=== PATIENT | female | born 2005 | race Caucasian/White ===

== ENCOUNTER 2025-04-03 11:23 | Emergency (ER) | payer OTHER, SELFPAY ==
[2025-04-03 11:43] VITALS: BP 105/67; PULSE 72; RESP 18; TEMP 36.3; O2SAT 100
--- NOTE | 2025-04-03 11:54 | ED_ITS ---
HPI - Ear Problem General Chief complaint: Ear Stated complaint: R ear pain Time Seen by Provider: 04/03/25 11:54 Source: patient, RN notes reviewed and old records reviewed Mode of arrival: ambulatory Limitations: no limitations History of Present Illness HPI Narrative: 19 year old female who is student from [employer] presents to express care with complaints of right ear pain for the past 3 days. Patient is here to play volleyball game with [employer]. Patient reports pain to her right ear as 8/10 and has been taking Tylenol and Ibuprofen for her discomfort. Patient reports that hearing is muffled in herright ear and did have some yellowish discharge yesterday from her ear. MD Complaint: ear pain Location: right ear Duration: constant Severity: severe Discharge from ear: Reports yes - purulent (yellowish) Treatment prior to arrival: oral analgesic (Ibuprofen and Tylenol) Related Data Home Medications ?Medication ?Instructions ?Recorded ?Confirmed ?Last Taken ?Type norgestimate 0.25 mg-ethinyl tablet 04/03/25 Unknown History estradiol 0.035 mg tablet (Cole-Linyah) Allergies Allergy/AdvReac Type Severity Reaction Status Date / Time No Known Allergies Allergy Verified 04/03/25 11:41 Review of Systems Review of Systems: CONSTITUTIONAL: Denies malaise, chills, sweats, or fever. EYES: Denies visual changes, redness, or discharge. ENT: Reports rhinorrhea, congestion, no sinus pain, positive for pain to her right ear and no sore throat. CARDIOVASCULAR: Denies chest pain, palpitations, or edema. RESPIRATORY: Reports no cough.? Denies dyspnea. GASTROINTESTINAL: Denies abdominal pain, nausea, vomiting, diarrhea SKIN: Denies rash or itching. MUSCULOSKELETAL: Denies myalgia. NEUROLOGIC: Denies headache. All systems reviewed & are unremarkable except as noted in HPI and below PMFSH Past Medical History Medical History (Updated 04/03/25 @ 20:09 by Tali Reich NP) Strep throat Ear infection Social History Social History (Updated 04/03/25 @ 20:02 by Tali Reich NP) Smoking status: Never smoker Alcohol intake: current Alcohol use details: social rare Substance use type: does not use Occupation/Education: student Additional occupation/education comments: [employer] Gender identity (if verbalized by the patient): Female Comments At time of signature, agree with nursing past medical, surgical, social and family history. There is no relevant family history pertinent to the presenting complaint Exam Narrative: GENERAL: Well-appearing, well-nourished, and in no acute distress. HEAD: Normocephalic EYES: PERRLA, conjunctivae clear ENT: Nares clear, turbinates edematous and erythematous, clear discharge. Mucous membranes moist.Right TM red with spontaneous rupture hearing muffled no drainage noted from ear, Left TM pearly singh with dull light reflex ; no tragal tenderness. Oropharynx erythematous without lesions. Tonsils not enlarged and without exudate, no drooling, no hoarseness, no trismus, uvula midline. NECK: Supple. No lymphadenopathy CHEST: Clear to auscultation, breath sounds equal. No wheezing, rhonchi, rales, or stridor. No respiratory distress, speaks in full sentences.no cough noted SAO2 100% on room air HEART: Regular rate and rhythm. No murmur heard. SKIN: Warm, dry, no rash. NEURO: Alert and oriented x3. PSYCH: Normal mood and affect Course Course Emergency Course: Patient is aware of diagnosis, understands and agrees to treatment plan.? Anticipatory guidance given.? Patient agrees to follow-up as directed and is aware of reasons to seek care at the emergency department. Portions of this record may have been created with voice recognition software Level of Care: Express Care Visit Vital Signs Vital signs: Vital Signs Temperature 36.3 C L 04/03/25 11:43 Pulse Rate 72 04/03/25 11:43 Respiratory Rate 18 04/03/25 11:43 Blood Pressure 105/67 04/03/25 11:43 Pulse Oximetry 100 04/03/25 11:43 Temperature 36.3 C L 04/03/25 11:43 Pulse Rate 72 04/03/25 11:43 Respiratory Rate 18 04/03/25 11:43 Blood Pressure 105/67 04/03/25 11:43 Pulse Oximetry 100 04/03/25 11:43 Reviewed Medical Decision Making Vital Signs Vital Signs: Vital Signs Temperature 36.3 C L 04/03/25 11:43 Pulse Rate 72 04/03/25 11:43 Respiratory Rate 18 04/03/25 11:43 Blood Pressure 105/67 04/03/25 11:43 Pulse Oximetry 100 04/03/25 11:43 Temperature 36.3 C L 04/03/25 11:43 Pulse Rate 72 04/03/25 11:43 Respiratory Rate 18 04/03/25 11:43 Blood Pressure 105/67 04/03/25 11:43 Pulse Oximetry 100 04/03/25 11:43 reviewed Critical Care Time Critical Care Time Critical Care Time: No Discharge Plan Discharge Clinical Impression: Otitis media Qualifiers: Otitis media type: suppurative Chronicity: acute Laterality: right Recurrence: non-recurrent Spontaneous tympanic membrane rupture: with spontaneous rupture Qualified Code(s): H66.011 - Acute suppurative otitis media with spontaneous rupture of ear drum, right ear Patient Disposition: Home Condition: Stable Instructions: Antibiotic Form Additional Instructions: Increase fluids especially juices and water [id number] cough and cold medicine of your choice for your symptoms Tylenol or ibuprofen for any fever pain ear drops as prescribed to the right ear heat to the face 20-30 minutes 4-6 times a day for pain Salt water gargles, throat lozenges or throat sprays as desired Antibiotic as directed--finish the medication If your symptoms persist, change or worsen significantly before you can contact your personal physician then please, without delay, go to the emergency department for further evaluation. Follow-up with PCP in 7-10 days or sooner if needed Patient Language: Citizen Of [place] Prescriptions: New ofloxacin 0.3 % drops 5 drp EACH EAR BID 7 Days Qty: 10 0RF Rx Instructions: right ear amoxicillin-pot clavulanate 875-125 mg tablet 1 tablet PO Q12H Qty: 20 0RF Rx Instructions: take with food, recommend either taking probiotic or eating Activia yogurt while on this antibiotic No Action norgestimate-ethinyl estradiol [Cole-Linyah] 0.25-0.035 mg tablet Follow-up/Referrals: UNKNOWN,DOCTOR [Primary Care Provider] Time of Disposition: 12:11 Quality Curly Coma Scale Eyes: Open Verbal: Oriented and Alert Motor: Follows Commands Curly Coma Total Score: 15
== END 2025-04-03 12:16 | disposition home or self-care (01) ==
PROVIDERS: Emergency Provider Registered Nurse
DX: H66.011 Acute suppurative otitis media with spontaneous rupture of ear drum, right ear (principal)
CPT/HCPCS: 99203; G0463